=== PATIENT | male | born 2000 | race Caucasian/White ===

== ENCOUNTER 2023-09-19 08:45 | Emergency (ER) | payer SELFPAY ==
[~2023-09-19] VITALS: Ht 177.8 cm; Wt 83.8 kg
[2023-09-19 09:07] VITALS: BP 109/52; PULSE 58; RESP 14; TEMP 98.4; O2SAT 97
== END 2023-09-19 13:52 | disposition left against medical advice (07) ==
LOC: ER 08:46
DX: M00.9 Pyogenic arthritis, unspecified (principal); Z53.21 Procedure and treatment not carried out due to patient leaving prior to being seen by health care provider